=== PATIENT | male | born 1950 | race Caucasian/White ===

== ENCOUNTER 2021-01-13 15:24 | Emergency (ER) | payer MEDICARE, BC ==
[~2021-01-13] VITALS: Ht 167.6 cm; Wt 95.2 kg
[2021-01-13 16:48] LABS: BASOPHILS ABSOLUTE AUTO 0.05 K/mm3 (0.00-0.23); BASOPHILS PERCENT AUTO 1 % (0-2); EOSINOPHILS ABSOLUTE AUTO 0.05 K/mm3 (0.00-0.68); EOSINOPHILS PERCENT AUTO 1 % (0-6); Hematocrit 45.3 % (37.0-53.0); Hemoglobin 15.2 g/dL (13.5-17.5); IMMATURE GRAN ABSOLUTE AUTO 0.04 K/mm3 (0.00-0.10); IMMATURE GRAN PERCENT AUTO 0 % (0-1); LYMPHOCYTES ABSOLUTE AUTO 2.52 K/mm3 (0.84-5.20); LYMPHOCYTES PERCENT AUTO 23 % (21-46); MONOCYTES ABSOLUTE AUTO 0.55 K/mm3 (0.16-1.47); MONOCYTES PERCENT AUTO 5 % (4-13); Mean Corpuscular HGB Conc 33.6 g/dL (31.5-36.5); Mean Corpuscular Volume 92 fL (80-100); Mean Platelet Volume 10.9 fL (9.1-12.4); NEUTROPHILS ABSOLUTE AUTO 7.57 K/mm3 (1.96-9.15); NEUTROPHILS PERCENT AUTO 70 % (41-73); Platelet Count 169 K/mm3 (150-400); RDW Coefficient Variation 13.3 % (11.7-14.2); RDW Standard Deviation 44.9 fL (35.1-46.3); Red Blood Cell Count 4.91 M/mm3 (4.30-5.90); White Blood Cell Count 10.78 K/mm3 (4.00-11.30)
[2021-01-13 17:16] LABS: Alanine Aminotransfer (ALT/SGP 35 U/L (12-78); Albumin, Blood 3.6 g/dL (3.4-5.0); Albumin/Globulin Ratio 1.1 (0.8-1.8); Alk Phos 104 U/L (50-136); Anion Gap 10 mmol/L (6-16); Aspartate Aminotrans (AST/SGOT 28 U/L (12-37); Bilirubin, Total 0.6 mg/dL (0.1-1.0); Blood Urea Nitrogen 18 mg/dL (8-24); CO2, Blood 23 mmol/L (21-32); Calcium, Blood 8.6 mg/dL (8.5-10.1); Chloride, Blood 111 mmol/L (98-108); Globulin, Blood 3.4 g/dL (2.2-4.0); Glomerular Filtration Rate >60 (60-); Glucose, Blood 105 mg/dL (70-99); Potassium, Blood 4.3 mmol/L (3.5-5.5); Sodium, Blood 144 mmol/L (136-145)
[2021-01-13 19:20] LABS: Source, Urine Clean Catch
[2021-01-13 19:30] LABS: Appearance, Urine Clear (Clear); Bilirubin, Urine Neg (Neg); Blood, Urine Neg (Neg); Color, Urine Yellow (P-Yellow); Glucose Qualitative, Urine Neg (Neg); Ketones, Urine 1+ (Neg); Leukocyte Esterase, Urine Neg (Neg); Nitrite, Urine Neg (Neg); Protein, Urine Neg (Neg); Specific Gravity, Urine 1.015 (1.003-1.022); Urobilinogen, Urine NORM (Normal)
== END 2021-01-13 20:50 | disposition home or self-care (01) ==
LOC: ER 15:24
PROVIDERS: Physician Assistant
DX: R41.0 Disorientation, unspecified (principal); R53.1 Weakness; I73.9 Peripheral vascular disease, unspecified; G62.9 Polyneuropathy, unspecified; Z88.0 Allergy status to penicillin; W18.30XA Fall on same level, unspecified, initial encounter
CPT/HCPCS: 36415; 70450; 80053; 81003; 85025; 93005; 93010; 99285-25